=== PATIENT | female | born 1960 | race Caucasian/White ===

== ENCOUNTER 2017-07-14 20:05 | Emergency (ER) | payer MEDICARE, MEDICAID ==
[2017-07-14] MEDS ORDERED: RINGERS SOLUTION,LACTATED 1,000 ML IV ONE (22:06)
[2017-07-14 22:31] LABS: VENOUS BLOOD BASE EXCESS 3.1 mmol/L; VENOUS BLOOD HCO3 30.4 mmol/L (20-32); VENOUS BLOOD PCO2 57.9 mmHg (35-63); VENOUS BLOOD PH 7.34 (7.30-7.42)
[2017-07-14 22:32] LABS: ABSOLUTE BASOPHILS # (AUTO) 0.1 10^3/uL (0.0-0.2); ABSOLUTE LYMPHOCYTES (AUTO) 2.4 10^3/uL (0.5-4.7); ABSOLUTE MONOCYTES (AUTO) 0.8 10^3/uL (0.1-1.4); ABSOLUTE NEUT (AUTO) 9.5 10^3/uL (1.7-8.2); BASOPHILS % (AUTO) 0.9 % (0-2); EOSINOPHILS % (AUTO) 0.4 % (0-6); HEMATOCRIT 40.2 % (36.0-47.0); HEMOGLOBIN 13.7 g/dL (12.0-15.5); HGB HCT DIFFERENCE 0.9; LYMPHOCYTES % (AUTO) 18.5 % (13-45); MEAN CORPUSCULAR HEMOGLOBIN 33.8 pg (27.0-33.4); MEAN CORPUSCULAR HGB CONC 34.2 g/dL (32.0-36.0); MEAN CORPUSCULAR VOLUME 99 fl (80-97); MONOCYTES % (AUTO) 6.4 % (3-13); RED BLOOD COUNT 4.06 10^6/uL (3.72-5.28); SEGMENTED NEUTROPHILS % (AUTO) 73.8 % (42-78); WHITE BLOOD COUNT 12.9 10^3/uL (4.0-10.5)
--- NOTE | 2017-07-14 22:38 | ER Document Report ---
ED General - General Chief Complaint: Rectal Bleeding Stated Complaint: RECTAL BLEEDING Time Seen by Provider: 07/14/17 22:05 Mode of Arrival: Medic Information source: Patient, Relative Cannot obtain history due to: Altered mental status TRAVEL OUTSIDE OF THE [place] IN LAST 30 DAYS: No - HPI Patient complains to provider of: bleeding from rectum or vagina Onset: Just prior to arrival Onset/Duration: Sudden Quality of pain: No pain Similar symptoms previously: No Recently seen / treated by doctor: No Past Medical History - General Information source: Patient, Relative - - Social History Smoking Status: Unknown if Ever Smoked Frequency of alcohol use: None Drug Abuse: None Lives with: Family, Other Family History: Reviewed & Not Pertinent Patient has suicidal ideation: No Patient has homicidal ideation: No - Medical History Notes: 07/14/2017 at 10:43 PM I did call the patient's [id number] and son. The son is the power of quoter for medical decision making his name is Ron. He states that the patient does not have a living will and she is not a DNR at this time. The [id number] Sapna told me that the patient fell twice today which is not unusual for her since she has pots. Then the patient went to use the bathroom. When she got up there was blood in the toilet bowl. They were unsure if she had the blood during urination or having a bowel movement. So they decided to send the patient here for evaluation. Patient does have a history of stroke and hypertension in the past. - Past Medical History Other: pots syndrome Neurological Medical History: Reports: Hx Cerebrovascular Accident Renal/ Medical History: Denies: Hx Peritoneal Dialysis Physical Exam - Vital signs Vitals: Temp Pulse Resp BP Pulse Ox 98.3 F 109 H 16 135/62 H 93 07/14/17 20:53 07/14/17 20:53 07/14/17 20:53 07/14/17 20:53 07/14/17 20:53 - Notes Notes: PHYSICAL EXAMINATION: GENERAL: She is pale and chronically ill-appearing laying in bed. HEAD: Atraumatic, normocephalic. EYES: Pupils equal round and reactive to light, extraocular movements intact, conjunctiva are normal. No scleral icterus ENT: Nares patent, oropharynx clear without exudates. Dry mucous membranes. NECK: Normal range of motion, supple without lymphadenopathy LUNGS: Breath sounds clear to auscultation bilaterally and equal. No wheezes rales or rhonchi. HEART: Regular rate and rhythm without murmurs ABDOMEN: Soft, nontender, nondistended abdomen. No guarding, no rebound. No masses appreciated. Midline abdominal scar from her umbilicus down to her symphysis pubis. Normal tone on rectal exam. There is scant dried dark blood at the rectum. No active bleeding and no clots. Female : Sternal genitalia within normal limits there is no blood at the vaginal area Musculoskeletal: Normal range of motion, no pitting or edema. No cyanosis. NEUROLOGICAL: Cranial nerves grossly intact. slow speech. Oriented to self.. 4out of 5 strength bilateral upper and lower extremities. PSYCH: Flat affect, slow to respond. SKIN: Warm, Dry, normal turgor, no rashes or lesions noted. Course - Re-evaluation Re-evalutation: 07/15/17 01:02 Pt. has severe dementia. states it has been getting worse the last 3 weeks.PT. does open her eye and knows her name. 07/15/17 01:03 No rectal bleeding while in ED. - Vital Signs Vital signs: Temp Pulse Resp BP Pulse Ox 98.3 F 109 H 14 154/81 H 100 07/14/17 20:53 07/14/17 20:53 07/15/17 00:02 07/15/17 00:02 07/15/17 00:02 - Laboratory Result Diagrams: 07/14/17 22:15 07/14/17 22:15 Laboratory results interpreted by me: 07/14/17 07/14/17 07/14/17 22:15 22:15 22:15 WBC 12.9 H MCV 99 H MCH 33.8 H RDW 16.0 H Absolute Neutrophils 9.5 H APTT 49.9 H Sodium 129.6 L Chloride 93 L Creatinine 1.89 H Est GFR ( Amer) 33 L Est GFR (Non-Af Amer) 27 L Glucose 139 H AST 63 H Alkaline Phosphatase 165 H Urine Glucose (UA) 07/15/17 00:15 WBC MCV MCH RDW Absolute Neutrophils APTT Sodium Chloride Creatinine Est GFR ( Amer) Est GFR (Non-Af Amer) Glucose AST Alkaline Phosphatase Urine Glucose (UA) 50 H - Diagnostic Test Radiology reviewed: Reports reviewed Radiology results interpreted by me: 07/15/17 01:[address] head Discharge - Discharge Clinical Impression: Dementia Condition: Stable Disposition: HOME, SELF-CARE Additional Instructions: Call your primary medical doctor for follow up this week. Return to the ED if any concerns.
[2017-07-14 22:59] LABS: ALANINE AMINOTRANSFERASE 42 U/L (9-52); ALBUMIN 3.6 g/dL (3.5-5.0); ALKALINE PHOSPHATASE 165 U/L (38-126); ANION GAP 10 (5-19); ASPARTATE AMINO TRANSFERASE 63 U/L (14-36); BILIRUBIN,DIRECT 0.4 mg/dL (0.0-0.4); BILIRUBIN,TOTAL 0.6 mg/dL (0.2-1.3); BLOOD UREA NITROGEN 19 mg/dL (7-20); CALCIUM 9.2 mg/dL (8.4-10.2); CARBON DIOXIDE 27 mmol/L (22-30); CHLORIDE 93 mmol/L (98-107); CREATININE RESULT 1.89 mg/dL (0.52-1.25); GLUCOSE 139 mg/dL (75-110); POTASSIUM 4.8 mmol/L (3.6-5.0); SODIUM 129.6 mmol/L (137-145); TOTAL PROTEIN 6.4 g/dL (6.3-8.2)
--- NOTE | 2017-07-14 23:19 | RADIOLOGY REPORT (SQ) ---
EXAM DESCRIPTION: CT HEAD WITHOUT COMPLETED DATE/TIME: 07/14/2017 11:08 pm REASON FOR STUDY: mental status change COMPARISON: None. TECHNIQUE: Axial images acquired through the brain without intravenous contrast. Images reviewed wi th bone, brain and subdural windows. Images stored on PACS. All CT scanners at this facility use dose modulation, iterative reconstruction, and/or weight based d osing when appropriate to reduce radiation dose to as low as reasonably achievable (ALARA). [facility]: Dose Right [facility]: CareDose [facility]: Dose Right [facility]: Teradose 4D [facility]: [employer] RADIATION DOSE: CT Rad equipment meets quality standard of care and radiation dose reduction techniq ues were employed. CTDIvol: 67.0 mGy. DLP: 1182 mGy-cm. mGy. LIMITATIONS: None. FINDINGS: VENTRICLES: Normal size and contour. CEREBRUM: No masses. No hemorrhage. No midline shift. No evidence for acute infarction. Normal gra y/white matter differentiation. No areas of low density in the white matter. CEREBELLUM: No masses. No hemorrhage. No alteration of density. No evidence for acute infarction. EXTRAAXIAL SPACES: No fluid collections. No masses. ORBITS AND GLOBE: No intra- or extraconal masses. Normal contour of globe without masses. CALVARIUM: No fracture. PARANASAL SINUSES: No fluid or mucosal thickening. SOFT TISSUES: No mass or hematoma. OTHER: No other significant finding. IMPRESSION: NORMAL BRAIN CT WITHOUT CONTRAST. EVIDENCE OF ACUTE STROKE: NO. COMMENT: Quality ID # [id number]: Final reports with documentation of one or more dose reduction techniques (e.g., Automated exposure control, adjustment of the mA and/or kV according to patient size, use of iterative reconstruction technique) TECHNICAL DOCUMENTATION: JOB ID: [id number] [employer]- All Rights Reserved
[2017-07-15 00:19] VITALS: BP 154/81
[2017-07-15 00:37] LABS: APPEARANCE,URINE SLIGHTLY-CLOUDY; BILIRUBIN,URINE NEGATIVE (NEGATIVE); GLUCOSE, URINE 50 mg/dL (NEGATIVE); KETONES,URINE NEGATIVE (NEGATIVE); LEUKOCYTE ESTERASE,URINE NEGATIVE (NEGATIVE); NITRITE,URINE NEGATIVE (NEGATIVE); PROTEIN,URINE NEGATIVE (NEGATIVE); URINE SPECIFIC GRAVITY 1.008; UROBILINOGEN,URINE NEGATIVE mg/dL (<2.0)
--- NOTE | 2017-07-15 03:29 | EKG REPORT ---
SEVERITY:- ABNORMAL ECG - SINUS TACHYCARDIA FIRST DEGREE AV BLOCK LEFT ANTERIOR FASCICULAR BLOCK PROBABLE LVH WITH SECONDARY REPOL ABNRM CONSIDER ANTERIOR INFARCT : Confirmed by: Deshawn Villalta 15-Jul-2017 03:28:31
== END 2017-07-15 01:35 | disposition home or self-care (01) ==
LOC: ER 20:05
DX: K62.5 Hemorrhage of anus and rectum (principal); F03.90 Unspecified dementia, unspecified severity, without behavioral disturbance, psychotic disturbance, mood disturbance, and anxiety; I10 Essential (primary) hypertension; Z86.73 Personal history of transient ischemic attack (TIA), and cerebral infarction without residual deficits; Z66 Do not resuscitate
CPT/HCPCS: 93005; 99284; 96360; 86900; 86901; 36415; 86850; 85025; 85730; 80053; 81001; 84484; 82803; 83605; 70450; 93010; J7120